=== PATIENT | male | born 1985 | race Caucasian/White ===

== ENCOUNTER → 2016-10-05 | Outpatient (REF) ==
[~2016-10-05] MED LIST: CEPHALEXIN500 M1 PO; NO HOME MEDICATIONS; SULFAMYLON TP; ULTRAM 50MG TAB50 MG PO; ZYLOPRIM 100MG100 MG; [UNRECOGNIZED DRUG - OTHER] TP
== END ==
LOC: WSOH 08:00
DX: Z02.89 Encounter for other administrative examinations (principal)